=== PATIENT | male | born 1955 | race Caucasian/White ===

== ENCOUNTER → 2021-11-01 | Day surgery (SDC) | payer MEDICARE, OTHER ==
[~2021-11-01] VITALS: Ht 175.3 cm; Wt 106.1 kg
[~2021-11-01] MED LIST: 24HOUR ALLERGY10 MG PO; ASPIRIN EC325 MG PO; BASAGLAR K100 UNIT/1 SC; BREO ELLIPTA 11 EACH INH; CATAPRES0.1 MG PO; CELEXA10 MG PO; COZAAR100 MG PO; DICYCLOMINE HCL20 MG PO; DILAUDID4 MG PO; DULOXETINE HCL30 MG PO; EXCEDRIN EXTRA1 EACH PO; FLOMAX0.4 MG PO; FLONASE ALLER15.8 ML; GLUCOSAMINE-CH1 EAC2 PO; HCTZ12.5 MG PO; HUMALOG 75100 UNIT/M SC; ISOSORBIDE DINI30 MG PO; LEVEMIR VI100 UNITS/ SC; LEVEMIR VI100 UNITS/ SQ; LEXAPRO20 MG PO; LIPITOR40 MG PO; LISINOPRIL20 MG PO; LOPRESSOR25 MG PO; NEURONTIN300 MG PO; NORVASC5 MG PO; NOVOLOG FLEXPEN SC; PLAVIX75 MG PO; SINGULAIR10 MG PO; SYMBICORT 80-10.2 GM INH; VENTOLIN HFA IN18 GM INH; ZOCOR40 MG PO
== END | disposition home or self-care (01) ==
LOC: FAS 06:26
DX: K31.89 Other diseases of stomach and duodenum (principal); K21.00 Gastro-esophageal reflux disease with esophagitis, without bleeding; R13.10 Dysphagia, unspecified; I69.354 Hemiplegia and hemiparesis following cerebral infarction affecting left non-dominant side; I25.10 Atherosclerotic heart disease of native coronary artery without angina pectoris; N40.0 Benign prostatic hyperplasia without lower urinary tract symptoms; J44.9 Chronic obstructive pulmonary disease, unspecified; E78.5 Hyperlipidemia, unspecified; I10 Essential (primary) hypertension; G47.33 Obstructive sleep apnea (adult) (pediatric); I25.2 Old myocardial infarction; E10.42 Type 1 diabetes mellitus with diabetic polyneuropathy; F17.210 Nicotine dependence, cigarettes, uncomplicated; M19.90 Unspecified osteoarthritis, unspecified site; E66.9 Obesity, unspecified; Z68.33 Body mass index [BMI] 33.0-33.9, adult; Z79.02 Long term (current) use of antithrombotics/antiplatelets; Z79.82 Long term (current) use of aspirin; Z79.899 Other long term (current) drug therapy; Z88.8 Allergy status to other drugs, medicaments and biological substances; Z95.5 Presence of coronary angioplasty implant and graft; Z98.890 Other specified postprocedural states; Z99.3 Dependence on wheelchair
CPT/HCPCS: J2250; J2704; J7120